=== PATIENT | female | born 1975 | race African-American/Black ===

== ENCOUNTER 2017-02-23 09:43 | Day surgery (SDC) | payer OTHER ==
--- NOTE | 2017-02-21 11:15 | HISTORY AND PHYSICAL E ---
History and Physical NAME: GIANNI FRANK : 1975 AGE: 41Y ADMITTED: 02/23/2017 ROOM: REASON FOR ADMISSION: Patient admitted for colon screening. She does have abdominal pain. HISTORY OF PRESENT ILLNESS: I saw the patient in 2010 through [facility] for abdominal pain. Scoped, no ulcers. The patient did have upper endoscopy, February 2011, that showed small duodenitis, mild gastritis. Biopsy-positive Helicobacter pylori. Patient presented at this time regarding colon screening. Patient referred to us by [facility]. He does complain of constipation. PAST MEDICAL HISTORY: History of constipation. The patient did have a colonoscopy that showed a small polyp, 2 to 3 mm in size, dimunitive polyp, too small to biopsy. She had 3 mm polyp in sigmoid, too small to biopsy. SURGERIES: Partial hysterectomy. ALLERGIES: No known allergies. FAMILY HISTORY: Father had melanoma. Mom is alive. MEDICATIONS: 1. Acyclovir. 2. . PHYSICAL EXAMINATION: VITAL SIGNS: Blood pressure is 120/80, pulse 80, respirations 20, temp is 98.8. HEAD, EYES, EARS, NOSE, THROAT: Normal. NECK: Supple. LUNGS: Clear. ABDOMEN: Soft. NEUROLOGIC: Negative. CONCLUSION: 1. Colon screening. 2. History of sigmoid polyps, benign, small. 3. History of Helicobacter pylori constipation. PLAN: Admit 02/23/2017. DICTATING PHYSICIAN: KIARRA MERAZ M.D. [id number] PHY#: [id number] ID: [id number] JOB#: [id number] ACCT: [id number] cc:KIARRA MERAZ M.D. >
[2017-02-23] MEDS ORDERED: ONDANSETRON HCL INJ/PF 4 MG/2 ML SDV ONE (09:50)
[2017-02-23] MEDS ORDERED: GLYCOPYRROLATE INJ 0.4 MG/2 ML VIAL ONE (09:50)
[2017-02-23] MEDS ORDERED: NALOXONE HCL INJ/PF 0.4 MG/1 ML SDV ONE (09:50)
[2017-02-23] MEDS ORDERED: FLUMAZENIL INJ 0.5 MG/5 ML VIAL ONE (09:51)
[2017-02-23] MEDS ORDERED: GLUCAGON,HUMAN RECOMB 1 MG INJ ONE (09:51)
[2017-02-23] MEDS ORDERED: EPINEPHRINE INJ 1 MG/10 ML DISP.SYRIN ONE (09:51)
[2017-02-23] MEDS: MIDAZOLAM 2 MG/2 ML INJ ONE ×2 (10:04→10:08)
[2017-02-23] MEDS: FENTANYL CITRATE INJ/PF 100 MCG/2 ML AMPUL ONE ×2 (10:06→10:10)
[2017-02-23 11:19] LABS: ABSOLUTE EOSINOPHILS # (AUTO) 0.1 10^3/uL (0.0-0.6); ABSOLUTE LYMPHOCYTES (AUTO) 1.5 10^3/uL (0.5-4.7); ABSOLUTE MONOCYTES (AUTO) 0.5 10^3/uL (0.1-1.4); ABSOLUTE NEUT (AUTO) 3.4 10^3/uL (1.7-8.2); BASOPHILS % (AUTO) 0.4 % (0-2); EOSINOPHILS % (AUTO) 1.2 % (0-6); HEMOGLOBIN 11.4 g/dL (12.0-15.5); HGB HCT DIFFERENCE 0.2; MEAN CORPUSCULAR HEMOGLOBIN 28.3 pg (27.0-33.4); MEAN CORPUSCULAR HGB CONC 33.5 g/dL (32.0-36.0); MEAN CORPUSCULAR VOLUME 84 fl (80-97); MONOCYTES % (AUTO) 8.4 % (3-13); RED BLOOD COUNT 4.03 10^6/uL (3.72-5.28); RED CELL DISTRIBUTION WIDTH 14.4 % (11.5-14.0); WHITE BLOOD COUNT 5.4 10^3/uL (4.0-10.5)
[2017-02-23 11:37] LABS: IRON 44.7 ug/dL (37-170)
[2017-02-23 12:09] LABS: CARCINOEMBRYONIC ANTIGEN 1.3 ng/mL (<3.0)
[2017-02-23 12:13] LABS: FERRITIN 63.6 ng/mL (6.2-137.0)
[2017-02-23 12:33] VITALS: BP 94/67
--- NOTE | 2017-02-23 12:34 | OPERATIVE REPORT E ---
Operative Report NAME: GIANNI FRANK : 1975 AGE: 41Y DATE OF SURGERY: 02/23/2017 ROOM: PREOPERATIVE DIAGNOSES: 1. Colon screening. 2. Remote history of polyps. POSTOPERATIVE DIAGNOSIS: Diminutive rectal polyps, small to biopsy. PROCEDURE: Colonoscopy. SURGEON: KIARRA MERAZ M.D. ANESTHESIA: Versed 4 mg and Fentanyl 100 mcg. TISSUE REMOVED OR ALTERED: None. PROCEDURE: Rectal exam: Diminutive polyps, small to biopsy. Sigmoid and descending colon normal. Patient did have partial hysterectomy. She does have adhesions, difficult intubation, redundant colon. Transverse colon normal. Ascending colon normal. Cecum normal. Large amount of liquidy stool in the right colon, cecum, suction lavaged. Cecum and ascending, no gross abnormalities. Inadequate prep. Transverse colon redundant, no polyps. Descending and sigmoid normal. Rectal exam diminutive polyp too small to biopsy. CONCLUSIONS: Diminutive rectal polyp, redundant colon, inadequate prep. PLAN: Consider follow-up colonoscopy 2-3 years with better prep. DICTATING PHYSICIAN: KIARRA MERAZ M.D. [id number] PHY#: [id number] ID: [id number] JOB#: [id number] ACCT: [id number] cc:KIARRA MERAZ M.D. [facility] >
--- NOTE | 2017-02-23 13:41 | DISCHARGE SUMMARY E ---
Discharge Summary NAME: GIANNI FRANK : 1975 AGE: 41Y ADMITTED: 02/23/2017 DISCHARGED: 02/23/2017 HISTORY: The patient is 41, underwent colon screening. She does have remote history of diminutive polyps. HOSPITAL COURSE: Today's colonoscopy was successful to the cecum. The patient did have diminutive rectal sigmoid polyps, 1-2 mm, too small to biopsy. In adequate prep, large amount of full liquidy stool in the right colon and descending colon. We succeeded to reach the cecum, but the visualization was not complete because of stool. I did lavage, too, back and forth. The best I could see, I could not see any polyps in cecum, ascending, transverse, descending, sigmoid, all the way to the rectum. FINAL DIAGNOSIS: Diminutive polyps, inadequate prep, consider followup colonoscopy in 2 years with better prep. DICTATING PHYSICIAN: KIARRA MEARZ M.D. [id number] PHY#: [id number] ID: [id number] JOB#: [id number] ACCT: [id number] cc:KIARRA MERAZ M.D. >
== END 2017-02-23 12:25 | disposition home or self-care (01) ==
LOC: END 09:43
PROVIDERS: ATTEND Specialist
PROC: 0DJD8ZZ Inspection of Lower Intestinal Tract, Via Natural or Artificial Opening Endoscopic (ICD-10-PCS; principal; 2017-02-23 10:00)
DX: K62.1 Rectal polyp (principal); R10.9 Unspecified abdominal pain; Q43.8 Other specified congenital malformations of intestine; Z86.010 Personal history of colon polyps; Z90.710 Acquired absence of both cervix and uterus; Z79.899 Other long term (current) drug therapy
CPT/HCPCS: 45378; 36415; 82378; 82728; 83540; 85025; J2250; J3010; J1610; J2405; J0171; J2310; J3490